=== PATIENT | male | born 1995 | race Two or more races ===

== ENCOUNTER 2019-07-10 03:32 | Emergency (ER) | payer SELFPAY ==
[~2019-07-10] VITALS: Ht 167.6 cm; Wt 89.8 kg
--- NOTE | 2019-07-10 04:22 | NUR ---
PT CAME TO ER BED 1 C/O EPIGASTRIC PAIN SINCE FRIDAY. PT STATES HE ATE SOMETHING ON FRIDAY AND HAS DULL PAIN 02/02 CAUSING HIM UNABLE TO SLEEP. CURRENTLY DENIES NAUSEA. AAOX4. NO SOB. BREATHING EVENLY AND UNLABORED ON ROOM. AWAITING MD DOLL.
[2019-07-10] MEDS ORDERED: MORPHINE SULFATE INJ 4 MG/ML DISP.SYRIN ONE (04:44)
[2019-07-10] MEDS ORDERED: ONDANSETRON HCL/PF 4 MG/2 ML VIAL ONE (04:44)
[2019-07-10] MEDS ORDERED: MAG HYDROX/AL HYDROX/SIMETH 30 ML UDC ONE (04:53)
[2019-07-10] MEDS ORDERED: LIDOCAINE VISCOUS 2% UD 15 ML UDC ONE (04:53)
--- NOTE | 2019-07-10 04:58 | NUR ---
URINE COLLECTED AND SENT TO LAB
[2019-07-10] MEDS ORDERED: IV NS 0.9% 1,000 ML BAG IV ONE (05:00)
[2019-07-10] MEDS ORDERED: MORPHINE SULFATE INJ 2 MG/ML DISP.SYRIN IV ONE (05:00)
[2019-07-10] MEDS ORDERED: LIDOCAINE VISCOUS 2% UD 15 ML UDC MM ONE (05:00)
[2019-07-10] MEDS ORDERED: ONDANSETRON HCL/PF 4 MG/2 ML VIAL IVP ONE (05:00)
[2019-07-10] MEDS ORDERED: MAG HYDROX/AL HYDROX/SIMETH 30 ML UDC PO ONE (05:00)
--- NOTE | 2019-07-10 05:00 | NUR ---
DEMO COORDINATOR AT BEDSIDE FOR BLOOD DRAW
[2019-07-10 05:07] LABS: BASOPHILS % (AUTO) 0.5 % (0.0-2.0); EOSINOPHILS % (AUTO) 1.9 % (0.0-6.0); HEMATOCRIT 48 % (39-51); HEMOGLOBIN 16.4 g/dL (13.5-17.5); LYMPHOCYTES % (AUTO) 18.9 % (20.0-44.0); MEAN CORPUSCULAR HGB CONC 35 g/dl (31.0-36.0); MEAN CORPUSCULAR VOLUME 85 fL (80-96); MONOCYTES # (AUTO) 0.8 /CMM (0.1-1.30); MONOCYTES % (AUTO) 7.3 % (2.0-12.0); NEUTROPHILS # (AUTO) 7.5 /CMM (1.8-8.9); NEUTROPHILS % (AUTO) 71.4 % (43.0-81.0); PLATELET COUNT (AUTO) 323 /CMM (150-450); RED BLOOD CELL COUNT(AUTO) 5.61 MIL/uL (4.5-6.0); WHITE BLOOD COUNT (AUTO) 10.5 K/uL (4.3-11.0)
[2019-07-10 05:19] LABS: CALCIUM, SERUM 9.2 mg/dL (8.5-10.1)
[2019-07-10 05:25] LABS: ALBUMIN 4.3 g/dL (3.4-5.0); BILIRUBIN,DIRECT 0.1 mg/dL (0.0-0.2); BILIRUBIN,TOTAL 0.8 mg/dL (0.2-1.0)
--- NOTE | 2019-07-10 06:13 | NUR ---
Patient discharged to home in stable condition. Written and verbal after care instructions given. Patient verbalizes understanding of instruction.
[2019-07-10 06:14] VITALS: BP 124/77
== END 2019-07-10 06:14 | disposition home or self-care (01) ==
LOC: ER 03:38
DX: R10.13 Epigastric pain (principal)
CPT/HCPCS: 36415; 76705-TC; 80048-TC; 80076-TC; 83690-TC; 85025-TC; J2270; J2405; J7030